=== PATIENT | male | born 1960 | race Caucasian/White ===

== ENCOUNTER 2017-02-03 20:22 | Emergency (ER) | payer SELFPAY ==
[~2017-02-03] VITALS: Ht 180.3 cm; Wt 88.0 kg
[2017-02-03 20:23] VITALS: BP 175/99; PULSE 70; RESP 18; TEMP 98.6; O2SAT 96
--- NOTE | 2017-02-03 20:57 | PD ---
HPI Chief Complaint: Foreign Body Time Seen by Provider: 20:50 Travel History International Travel<30 days: No Contact w/Intl Traveler<30days: No Traveled to known affect area: No History of Present Illness HPI 56-year-old white male resents emergent department with complaints of a foreign body right eye. He states that he had gotten something in his right eye on Thursday. He had gone to an urgent care on Thursday. He was advised that they were only able to remove part of the foreign body. They stated to him that they felt the rest would work its way out. He is given Floxin drops. The patient states that he has had persistent worsening pain in his right eye. Positive tearing. Some photophobia. No diplopia. No purulent drainage. Minimal blurred vision. Patient does wear glasses for reading but no contacts. He has had a dental infection that is currently taking clindamycin and Lortab. Patient states that he has not had a tetanus shot over 5 years and does not want one. PFSH Past Medical History Narrative Medical Hypertension Tetanus Vaccination: > 5 Years Past Surgical History Surgical History: No Previous Surgery Social History Alcohol Use: Yes Tobacco Use: No Substance Use: No Allergies-Medications (Allergen,Severity, Reaction): Coded Allergies: No Known Allergies (Unverified , 02/03/17) Review of Systems Except as stated in HPI: all other systems reviewed are Neg General / Constitutional: No: Fever, Chills Eyes: Positive: Blurred Vision, Photophobia, Redness, Foreign Body Sensation, Pain, Tearing, Visual changes, No: Diploplia, Drainage HENT: No: Headaches, Sore Throat Cardiovascular: No: Chest Pain or Discomfort, Tachycardia Respiratory: No: Cough, Shortness of Breath Physical Exam Narrative GENERAL: Well-developed, well-nourished in no acute distress. Nontoxic appearing. HEAD: Normocephalic, atraumatic. EYES: Pupils equal round and reactive. Extraocular motions intact. No scleral icterus. No injection or drainage in the left eye. The right eye is somewhat injected. There is a foreign body noted at the 6:00 hour on the cornea. The lids are flipped and no foreign body seen under the lids. Alcaine is instilled in the right eye with resolution of pain. ENT: TMs clear without erythema. The external auditory canals clear. Nose: clear . Posterior pharynx is pink and moist. No tonsillar edema or exudate. Uvula midline. Airway patent. NECK: Trachea midline.Supple, nontender, moves head freely. No central bony tenderness or spasm. CARDIOVASCULAR: Regular rate and rhythm without murmurs, gallops, or rubs. RESPIRATORY: Clear to auscultation. Breath sounds equal bilaterally. No wheezes , rales, or rhonchi. GASTROINTESTINAL: Abdomen soft, non-tender, nondistended. No hepato-splenomegaly , or palpable masses. No guarding. EXTREMITIES: No clubbing, cyanosis, or edema. No joint tenderness, effusion, or edema noted. BACK: Nontender without deformity or crepitance. No flank tenderness. Data Data Last Documented VS Vital Signs Date Time Temp Pulse Resp B/P Pulse Ox O2 Delivery O2 Flow Rate FiO2 02/03/17 20:23 98.6 70 18 175/99 96 Room Air Orders Ibuprofen (Motrin) (02/03/17 21:00) Oxycodone-Acetamin 5-325 Mg (Percocet (02/03/17 21:00) MDM Medical Decision Making Medical Screen Exam Complete: Yes Emergency Medical Condition: Yes Medical Record Reviewed: Yes Differential Diagnosis MDM: High Differential diagnoses: Acute conjunctivitis (bacterial, viral, allergic, traumatic), glaucoma, iritis, traumatic globe injury, foreign body, corneal abrasion, corneal ulcer, diabetic retinopathy, photokeratitis, herpes keratitis , CMV retinitis Narrative Course Patient has a foreign body in the right eye. This has been removed using a 18- gauge needle. Patient has Floxin drops. Patient's given 1 Motrin 800 mg and Percocet 5 mg by mouth here in the ER. Visual acuity in the left eye is 20/20 and 20/40 right eye This is right eye foreign body-resolved Procedures Procedure Narrative Foreign body removal right eye: Alcaine is instilled in right eye. Attempts at removal using a cotton tip applicator unsuccessful. The foreign bodies removed using an 18-gauge needle. There is a remaining rust ring which has been removed as well. Repeat funduscopic exam reveals resolution of the foreign body and rust ring. Fluorescein stain revealed a corneal deficit from having the foreign body removed but no other injuries. Diagnosis Primary Impression: foreign body right eye-removed Referrals: Nora Manriquez MD 2 days Patient Instructions: General Instructions Additional Instructions: Rest. Wash eyelashes with baby shampoo 3 times daily. Pool compresses. Continue her Floxin drops. Continue your Motrin and pain medication. Followup with an eye doctor in 2 days. Follow-up with a medical doctor one week. Return to the ER if any problems. Med/Other Pt SpecificInfo: Prescription(s) given Disposition: 01 DISCHARGE HOME Condition: Stable Vini Rehman Feb 03, 2017 20:57
[2017-02-03] MEDS ORDERED: oxyCODONE/ACETAMINOPHEN 5 MG/325 MG TAB PO ONE (21:00)
[2017-02-03] MEDS ORDERED: IBUPROFEN 800 MG TAB PO ONE (21:00)
== END 2017-02-03 21:09 | disposition home or self-care (01) ==
LOC: NEPD 20:22
DX: S05.8X2A Other injuries of left eye and orbit, initial encounter (principal); T15.91XA Foreign body on external eye, part unspecified, right eye, initial encounter; K04.7 Periapical abscess without sinus; I10 Essential (primary) hypertension; X58.XXXA Exposure to other specified factors, initial encounter; Y93.89 Activity, other specified; Y92.9 Unspecified place or not applicable; Y99.9 Unspecified external cause status; T15.92XA Foreign body on external eye, part unspecified, left eye, initial encounter
CPT/HCPCS: 65220

== ENCOUNTER 2017-02-04 16:35 | Emergency (ER) | payer SELFPAY ==
[~2017-02-04] VITALS: Ht 180.3 cm; Wt 93.0 kg
[2017-02-04 16:36] VITALS: BP 169/91; PULSE 65; RESP 16; TEMP 99; O2SAT 96
--- NOTE | 2017-02-04 17:39 | PD ---
HPI Chief Complaint: Eye Problems/Injury Time Seen by Provider: 17:38 Travel History International Travel<30 days: No Contact w/Intl Traveler<30days: No Traveled to known affect area: No History of Present Illness HPI 56-year-old male presents emergency department with complaint of continued right eye pain. He was seen here last night and had foreign body removed from his right eye and is concerned because he still having pain and the sensation of something still being in his eye. He has been using his Floxin eyedrops as prescribed. Has Lortabs for pain. Reports clear drainage. Reports photophobia. Reports blurry vision. Denies fever, vomiting. Has not followed up with ophthalmology. No known allergies. No other modifying factors or associated signs and symptoms. [facility] Social History Alcohol Use: Yes Tobacco Use: No Substance Use: No Allergies-Medications (Allergen,Severity, Reaction): Coded Allergies: No Known Allergies (Unverified , 02/04/17) Reported Meds & Prescriptions Reported Meds & Active Scripts Active No Active Prescriptions or Reported Medications Review of Systems Except as stated in HPI: all other systems reviewed are Neg Physical Exam Narrative GENERAL: Well-nourished, well-developed patient, in no acute distress SKIN: Warm and dry. HEAD: Atraumatic. Normocephalic. EYES: Pupils equal and round at 3 mm with brisk reaction. PERRLA. EOMI. visual acuity 20/25 bilateral. Right lid eversion with no foreign body noted. Right eye with minimal scleral erythema and mild lid edema. No orbital tenderness, erythema or cellulitis. Right eye with photophobia. No consensual photophobia. No scleral icterus. Clear drainage. Marie lamp exam reveals corneal abrasion at the 6 o'clock position over the iris. ENT: Mucosa pink and moist. Airway patent. NECK: Trachea midline. CARDIOVASCULAR: Regular rate. RESPIRATORY: No accessory muscle use. GASTROINTESTINAL: Flat. NEUROLOGICAL: Awake and alert. Oriented 3. No obvious cranial nerve deficits. Motor grossly within normal limits. Normal speech. PSYCHIATRIC: Appropriate mood and affect; insight and judgment normal. Data Data Last Documented VS Vital Signs Date Time Temp Pulse Resp B/P Pulse Ox O2 Delivery O2 Flow Rate FiO2 02/04/17 16:36 99.0 65 16 169/91 96 Room Air MDM Medical Decision Making Medical Screen Exam Complete: Yes Emergency Medical Condition: Yes Medical Record Reviewed: Yes Differential Diagnosis Corneal abrasion, foreign body, medical clearance Narrative Course 56-year-old male presents back to the emergency department with continued right eye pain and sensation of foreign body in his right eye. He was seen here yesterday and had foreign body removed from his eye. He was instructed to follow-up with ophthalmology which he has not done. He has antibiotic eyedrops that he has been using as prescribed. He has Lortab for pain. Marie lamp exam reveals a corneal abrasion at the 6 o'clock position over the iris. Instructed patient to follow up with metal off bearer in 1 day and continue medications as prescribed. Instructed patient to follow up with primary care provider. Patient verbalizes understanding and agreement with treatment plan. Patient is medically cleared and stable for discharge. Discussed reasons to return to the emergency department. Patient agrees with treatment plan. The patients vital signs are stable and the patient is stable for outpatient follow-up and treatment. Patient discharged home, stable and in no acute distress. Diagnosis Primary Impression: Corneal abrasion, right Qualified Code: S05.01XD - Corneal abrasion, right, subsequent encounter Referrals: Nora Manriquez MDkeno writer / runner Primary Care Physician Patient Instructions: Corneal Abrasion (ED), General Instructions Additional Instructions: Ibuprofen or Tylenol as directed and as needed to reduce pain Do not patch the eye Do not rub the eye Refrigerated eye drops as needed to reduce pain Cool compresses to the eye as needed to reduce pain Follow-up with ophthalmology 1 day Primary care provider Return to the emergency department immediately with worsening of symptoms Med/Other Pt SpecificInfo: No Change to Meds, No Meds Exist/No RX given Scripts No Active Prescriptions or Reported Meds Disposition: 01 DISCHARGE HOME Condition: Stable Lexy Martinez [employer] Feb 04, 2017 17:39
== END 2017-02-04 18:25 | disposition home or self-care (01) ==
LOC: NEPK 16:35
DX: S05.01XD Injury of conjunctiva and corneal abrasion without foreign body, right eye, subsequent encounter (principal); X58.XXXA Exposure to other specified factors, initial encounter; Y93.9 Activity, unspecified; Y92.9 Unspecified place or not applicable
CPT/HCPCS: 99282